=== PATIENT | male | born 1990 | race Caucasian/White ===

== ENCOUNTER 2019-01-03 11:01 | Emergency (ER) | payer OTHER ==
--- NOTE | 2019-01-03 12:22 | ED Physician Documentation ---
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 The order of pain seem to make the patient noxious and he had to leave the room. He noted that he became diaphoretic and felt a bit short of breath after that. Since that time he is felt that he has had to take a breath more frequently and that he is somewhat lightheaded. This morning when he tried to go down the stairs and felt that he was lightheaded with going down the stairs he has come to the emergency department. Review of Systems Constitutional: denies: Fever Eyes: denies: Decreased vision Ears: denies: Ear pain Nose: denies: Rhinorrhea / runny nose, Congestion Throat: denies: Sore throat Cardiac: reports: Palpitations. denies: Chest pain / pressure, Pedal edema, Calf pain Respiratory: reports: Dyspnea. denies: Cough, Wheezing GI: denies: Abdominal Pain, Nausea, Vomiting : denies: Dysuria, Frequency PD PAST MEDICAL HISTORY - Present Medications Home Medications: Ambulatory Orders Medication Instructions Recorded Confirmed No Known Home Medications 01/03/19 01/03/19 - Allergies Allergies/Adverse Reactions: Allergies Allergy/AdvReac Type Severity Reaction Status Date / Time No Known Drug Allergies Allergy Verified 01/03/19 11:08 PD ED PE NORMAL - Vitals Vital signs reviewed: Yes (hypertensive ) - General General: Alert and oriented X 3, No acute distress, Well developed/nourished - HEENT HEENT: Atraumatic, PERRL, EOMI - Neck Neck: Supple, no meningeal sign, No bony TTP - Cardiac Cardiac: RRR, No murmur - Respiratory Respiratory: No respiratory distress, Clear bilaterally - Abdomen Abdomen: Soft, Non tender - Back Back: No CVA TTP, No spinal TTP - Derm Derm: Normal color, Warm and dry, No rash - Extremities Extremities: No deformity, No edema - Neuro Neuro: Alert and oriented X 3, No motor deficit, No sensory deficit, Normal speech Eye Opening: Spontaneous Motor: Obeys Commands Verbal: Oriented GCS Score: 15 - Psych Psych: Normal mood, Normal affect Results - Vitals Vitals: Vital Signs - 24 hr 01/03/19 01/03/19 11:05 13:08 Temperature 37.3 C 36.5 C Heart Rate 75 58 L Respiratory 18 16 Rate Blood Pressure 151/77 H 123/83 H O2 Saturation 100 100 Oxygen O2 Source Room air - EKG (time done) 1114 Rate: Rate (enter#) (70) Rhythm: NSR Ischemia: ST elevation c/w repol Compare to prior EKG: Old EKG unavailable Computer interpretation: Agree with computer - Labs Labs: Laboratory Tests 01/03/19 01/03/19 01/03/19 12:42 12:42 12:42 WBC 7.0 RBC 4.91 Hgb 15.4 Hct 43.9 MCV 89.4 MCH 31.4 H MCHC 35.1 RDW 12.1 Plt Count 225 MPV 11.3 Neut # (Auto) 4.8 Lymph # (Auto) 1.5 [place] # (Auto) 0.5 Eos # (Auto) 0.1 Baso # (Auto) 0.1 Absolute Nucleated RBC 0.00 Nucleated RBC % 0.0 Sodium 139 Potassium 4.2 Chloride 100 L Carbon Dioxide 28 Anion Gap 11.0 BUN 15 Creatinine 0.9 Estimated GFR (MDRD) 100 Glucose 87 Calcium 9.3 Total Bilirubin 0.7 AST 25 ALT 15 Alkaline Phosphatase 73 Troponin I < 0.04 Total Protein 7.8 Albumin 4.5 Globulin 3.3 Albumin/Globulin Ratio 1.4 Lipase 31 Procedures - IVC sono (time) 1215 Bedside IVC sono: IVC measures (cm) (1.22), IVC collapsed c insp (cm) (complete), Dehydration (est 1 liter deficit) PD MEDICAL DECISION MAKING - ED course Complexity details: reviewed results, re-evaluated patient, considered differential, d/w patient, d/w family ED course: 28 y/o male with lightheadedness is dehydrated on interrogation of the IVC. He is able to orally hydrate and I suspect his symptoms are all related to dehydration. Blood work is obtained. All is normal. The patient experienced a chemical sensitivity event that preceded all of this and he may have some trouble with chemical sensitivity. Departure - Departure Disposition: 01 Home, Self Care Clinical Impression: Dehydration, Sensitivity to occupational chemical Condition: Stable Instructions: ED Dehydration Follow-Up: CRYSTAL Murrieta [Provider Group]
[2019-01-03 12:50] LABS: BASOPHILS # (AUTO) 0.1 10^3/uL (0.0-0.1); BASOPHILS % (AUTO) 0.9 %; EOSINOPHILS # (AUTO) 0.1 10^3/uL (0.0-0.7); EOSINOPHILS % (AUTO) 0.9 %; HGB - HEMOGLOBIN 15.4 g/dL (14.0-18.0); LYMPHOCYTES # (AUTO) 1.5 10^3/uL (1.5-3.5); MEAN CORPUSCULAR HEMOGLOBIN 31.4 pg (27.0-31.0); MEAN CORPUSCULAR HGB CONC 35.1 g/dL (32.0-36.0); MEAN CORPUSCULAR VOLUME 89.4 fL (80.0-94.0); MEAN PLATELET VOLUME 11.3 fL (7.4-11.4); MONOCYTES # (AUTO) 0.5 10^3/uL (0.0-1.0); MONOCYTES % (AUTO) 7.2 %; NEUTROPHILS # (AUTO) 4.8 10^3/uL (1.5-6.6); NEUTROPHILS % (AUTO) 68.7 %; PLT - PLATELET COUNT 225 10^3/uL (130-450); RED BLOOD COUNT 4.91 10^6/uL (4.70-6.10); RED CELL DISTRIBUTION WIDTH 12.1 % (12.0-15.0)
[2019-01-03 13:03] LABS: ALBUMIN 4.5 g/dL (3.2-5.5); ALBUMIN/GLOBULIN RATIO 1.4 (1.0-2.2); BILIRUBIN,TOTAL 0.7 mg/dL (0.2-1.0); CALCIUM 9.3 mg/dL (8.5-10.3); CREATININE 0.9 mg/dL (0.6-1.2); TOTAL PROTEIN 7.8 g/dL (6.7-8.2)
[2019-01-03 13:10] VITALS: BP 123/83
== END 2019-01-03 13:27 | disposition home or self-care (01) ==
LOC: ED 11:01
DX: E86.0 Dehydration (principal); Z57.5 Occupational exposure to toxic agents in other industries
CPT/HCPCS: 36415; 80053; 83690; 84484; 85025; 93005; 99283

== ENCOUNTER 2019-01-13 15:37 | Emergency (ER) | payer OTHER ==
--- NOTE | 2019-01-13 15:45 | ED Physician Documentation ---
History of Present Illness - Stated complaint Stated Complaint: SOA - History obtained from History obtained from: Patient - Additonal information Additional information: Patient is a 28-year-old male presenting with several weeks of worsening shortness of breath without productive cough or fever. Patient reports associated intermittent chest discomfort. He denies URI complaints, as well as other abdominal complaints including pain, nausea, vomiting, urinary changes, or stool changes from his baseline. Patient has been seen by his flight doctor, as well as in the ED for the symptoms with negative work-up including EKG, cardiac enzymes, screening lab work, chest x-ray. Patient is scheduled to see a primary care physician tomorrow and has been told he will likely be sent to a senior administrator support. Patient denies use of steroids, inhalers, or other medications at home. Patient also denies tobacco or vaping. No other improving or worsening factors noted. Review of Systems Constitutional: denies: Fever Nose: denies: Rhinorrhea / runny nose, Congestion Cardiac: reports: Chest pain / pressure Respiratory: reports: Dyspnea. denies: Cough GI: denies: Abdominal Pain, Nausea, Vomiting, Diarrhea : denies: Dysuria PD PAST MEDICAL HISTORY - Past Medical History Past Medical History: No - Past Surgical History Past Surgical History: No - Present Medications Home Medications: Ambulatory Orders Medication Instructions Recorded Confirmed Albuterol Sulf [Ventolin Hfa 1 - 2 puffs INH Q4HR PRN #1 inhaler 01/13/19 Inhaler] - Allergies Allergies/Adverse Reactions: Allergies Allergy/AdvReac Type Severity Reaction Status Date / Time No Known Drug Allergies Allergy Verified 01/13/19 15:51 PD ED PE NORMAL - Vitals Vital signs reviewed: Yes - General General: Alert and oriented X 3, No acute distress, Well developed/nourished - HEENT HEENT: Atraumatic, Moist mucous membranes, Pharynx benign, Dentition benign - Neck Neck: Supple, no meningeal sign - Cardiac Cardiac: RRR, No murmur - Respiratory Respiratory: No respiratory distress, Clear bilaterally - Abdomen Abdomen: Normal bowel sounds, Soft, Non tender, Non distended - Derm Derm: Normal color, Warm and dry, No rash - Extremities Extremities: No deformity, No tenderness to palpate - Neuro Neuro: Alert and oriented X 3, No motor deficit, No sensory deficit - Psych Psych: Normal mood, Normal affect Results - Vitals Vitals: Vital Signs - 24 hr 01/13/19 01/13/19 15:46 16:46 Temperature 36.2 C L Heart Rate 75 71 Respiratory 19 16 Rate Blood Pressure 132/93 H O2 Saturation 99 Oxygen O2 Source Room air - EKG (time done) 1615 Rate: Rate (enter#) (71) Rhythm: NSR QRS: LVH Ischemia: ST elevation c/w repol PD MEDICAL DECISION MAKING - ED course Complexity details: reviewed old records, reviewed results, re-evaluated patient, considered differential, d/w patient ED course: Patient is otherwise young and healthy and presenting with several weeks of shortness of breath with exertion. Patient has received extensive work-up by flight physician and ED recently. Have low suspicion for ACS, AR, unstable angina, dissection, aneurysm, but considered. Do not feel patient is at high risk for cardiomyopathy, CHF at this time. Do not feel he requires emergent echo, but this could be completed as an outpatient. EKG repeated today which not find evidence of ischemia or particular rhythm change. Patient has received cardiac enzymes recently which have returned negative. Patient's chest x-rays have also been performed and did not find evidence of pulmonary edema or pneumonia and do not feel this requires repeating today. Did obtain CTA chest to further rule out PE, which returned relatively unremarkable. Feel that patient may be experiencing reactive airway disease or other asthma and he received DuoNeb in the ED and plan to prescribe albuterol inhaler for home. Patient is also concerned about possible exposures in the past and this could be contributing, however, feel this is best left to a senior administrator support to investigate. Patient has primary care physician follow-up tomorrow and his flight doctor has already suggested cardiology and pulmonology referral from the PCP.Respiratory therapy worked with patient regarding use of inhaler and spacer. At this time, I feel the patient is safe to discharge home with close follow-up tomorrow and otherwise advised on strict return precautions. Patient voiced understanding and is comfortable with discharge plan. Departure - Departure Disposition: 01 Home, Self Care Clinical Impression: Reactive airway disease Qualifiers: Asthma severity: unspecified severity Asthma complication type: uncomplicated Instructions: ED Reactive Airway Disease Follow-Up: Renate Shah MD [Primary Care Provider] - Tomorrow Prescriptions: Albuterol Sulf [Ventolin Hfa Inhaler] 1 - 2 puffs INH Q4HR PRN #1 inhaler PRN Reason: Shortness Of Air/Wheezing Comments: Please use inhaler as prescribed to help with shortness of breath. Please follow-up as scheduled with primary care physician tomorrow and consider referral to cardiology and/or pulmonology. Return to ED sooner if experience worsening symptoms or have other concerns.
[2019-01-13] MEDS ORDERED: IPRATROPIUM/ALBUTEROL 3 ML NEB INH STA (16:02)
[2019-01-13] MEDS ORDERED: IOVERSOL 320 100 ML VIAL IVP ONE ×2 (16:20→17:40)
--- NOTE | 2019-01-13 17:02 | CT Report ---
Reason: weeks of SOB, concern for PE Procedure Date: 01/13/2019 Accession Number: [id number] / [id number] Procedure: CT - ANGIO CHEST W/WO CPT Code: FULL RESULT: EXAM: CT ANGIOGRAM CHEST EXAM DATE: 01/13/2019 04:35 PM. CLINICAL HISTORY: Weeks of SOB, concern for PE. COMPARISON: None. TECHNIQUE: Routine helical imaging was performed through the chest in the pulmonary arterial phase. IV Contrast: OPTI 320 80ML. Reconstructions: Coronal 3-D MIP reconstructions.Sagittal and coronal. In accordance with CT protocol optimization, one or more of the following dose reduction techniques were utilized for this exam: automated exposure control, adjustment of mA and/or KV based on patient size, or use of iterative reconstructive technique. FINDINGS: Pulmonary Arteries: Diagnostic quality: Adequate through the segmental arteries. No evidence for acute or chronic pulmonary emboli. RV/LV is within normal limits. There is no interventricular septal bowing. There is no reflux of contrast material in the IVC. Lungs/Pleura: No consolidation, nodules, or edema. No effusions or pneumothorax. Mediastinum: Normal. No cardiac enlargement or adenopathy. Thoracic Aorta: Unremarkable. Upper Abdomen: Unremarkable. Other: None. IMPRESSION: Negative pulmonary CT angiogram. No pulmonary emboli. RADIA
[2019-01-13 17:37] VITALS: BP 139/84
== END 2019-01-13 17:37 | disposition home or self-care (01) ==
LOC: ED 15:37
DX: J45.909 Unspecified asthma, uncomplicated (principal); R07.89 Other chest pain
CPT/HCPCS: 71275; 93005; 94640; 99284; Q9967

== ENCOUNTER 2019-06-16 13:44 | Emergency (ER) | payer OTHER ==
[2019-06-16 13:53] VITALS: BP 148/77
--- NOTE | 2019-06-16 14:27 | ED Physician Documentation ---
History of Present Illness - Stated complaint Stated Complaint: LT WRIST LAC - Chief complaint Chief Complaint: Laceration - Additonal information Additional information: This is a 29-year-old male who presents a laceration to his left wrist. He was opening presents for his children with a knife and it slipped and stabbed him in the left volar aspect of the forearm. he states that it oozed blood for quite a while. He put a butterfly across it and put some first-skin liquid bandage over top of it, and this seemed to control the bleeding but then later when he was playing with his kids began to bleed again so he decided to come here for repair. He is able to flex and extend his hand denies any numbness or tingling. He did not notice any arterial spurting from it Review of Systems Constitutional: denies: Fever Skin: reports: Laceration (s) PD PAST MEDICAL HISTORY - Past Surgical History Past Surgical History: No - Present Medications Home Medications: Ambulatory Orders Medication Instructions Recorded Confirmed Albuterol Sulf [Ventolin Hfa 1 - 2 puffs INH Q4HR PRN #1 inhaler 01/13/19 Inhaler] - Allergies Allergies/Adverse Reactions: Allergies Allergy/AdvReac Type Severity Reaction Status Date / Time No Known Drug Allergies Allergy Verified 06/16/19 13:53 - Living Situation Living Situation: reports: With family Living Arrangement: reports: At home - Social History Does the pt smoke?: No PD ED PE NORMAL - Vitals Vital signs reviewed: Yes - General General: Alert and oriented X 3 - HEENT HEENT: Atraumatic - Respiratory Respiratory: No respiratory distress - Abdomen Abdomen: Non distended - Extremities Extremities: Other (On the left forearm on the volar aspect of the arm there is a 1 cm linear laceration that extends through the subcutaneous tissue. There is no tendon or bone visible. There is no active bleeding. There is no foreign body.Sensation distally is intact. Patient has full strength against resistance with flexion of all digits at DIP PIP and MCP joints.) - Neuro Neuro: Alert and oriented X 3 Results - Vitals Vitals: Vital Signs - 24 hr 06/16/19 13:49 Temperature 36.4 C L Heart Rate 76 Respiratory 16 Rate Blood Pressure 148/77 H O2 Saturation 99 Oxygen O2 Source Room air Procedures - Laceration (location) L forearm Length in cm: 1 Wound type: Linear Neurovascular status: Sensory intact, Motor intact, Vascular intact Tendon involvement: Tendon intact Wound Preparation: Other (Irrigated copiously with clean water) Skin layer closure: Nylon (1 simple interrupted ethilon suture) Other: Patient tolerated well, No complications, Neurovascular intact, Tetanus UTD Complexity: Simple PD MEDICAL DECISION MAKING - ED course ED course: Patient presents with a simple laceration to his left forearm, there are no signs of damage to underlying structures, no signs of arterial or tendon injury. This was repaired with a single suture after discussing with him the options of Steri-Strips and skin glue versus suturing, I reviewed signs of infection, recommended suture removal in 7 to 10 days, and patient was discharged home Departure - Departure Disposition: 01 Home, Self Care Clinical Impression: Laceration Condition: Good Instructions: ED Laceration All Comments: Please have your stitches checked for removal in 10 days. If you develop signs of infection such as redness streaking up the arm, or pus draining from the wound, return to the emergency department. Discharge Date/Time: 06/16/19 14:43
== END 2019-06-16 14:43 | disposition home or self-care (01) ==
LOC: ED 13:44
DX: S51.812A Laceration without foreign body of left forearm, initial encounter (principal); W26.0XXA Contact with knife, initial encounter; Y93.89 Activity, other specified
CPT/HCPCS: 12001; 99281

== ENCOUNTER 2019-07-12 16:10 | Emergency (ER) | payer OTHER ==
[2019-07-12 16:29] VITALS: BP 133/78
[2019-07-12 16:39] LABS: BILIRUBIN,URINE NEGATIVE (NEGATIVE); GLUCOSE, URINE (UA) NEGATIVE (NEGATIVE); KETONES,URINE (UA) NEGATIVE (NEGATIVE); LEUKOCYTE ESTERASE, URINE NEGATIVE (NEGATIVE); NITRITE,URINE NEGATIVE (NEGATIVE); OCCULT BLOOD,URINE SMALL (NEGATIVE); PROTEIN,URINE NEGATIVE (NEGATIVE); UROBILINOGEN,URINE 0.2 (NORMAL) E.U./dL (NORMAL)
[2019-07-12 16:41] LABS: CLARITY,URINE CLEAR (CLEAR)
[2019-07-12 16:48] LABS: BACTERIA,URINE Rare /HPF (None Seen); RBC,URINE 0-5 /HPF (0-5); SQUAMOUS EPITHELIAL CELL,UR NONE SEEN (<= Few)
--- NOTE | 2019-07-12 18:37 | ED Physician Documentation ---
PD HPI MALE - Stated complaint Stated Complaint: M - Chief complaint Chief Complaint: UTI - History obtained from History obtained from: Patient - History of Present Illness Timing - onset: Today (Starting after may be rubbing his penis against his pants accidentally today he had some urinary frequency and burning and a small amount of hematuria. No flank pain. No fevers. No concern for STD per him.) Review of Systems Constitutional: reports: Reviewed and negative Cardiac: reports: Reviewed and negative Respiratory: reports: Reviewed and negative PD PAST MEDICAL HISTORY - Past Medical History Past Medical History: Yes Cardiovascular: None Respiratory: None Neuro: None Endocrine/Autoimmune: None GI: None : None HEENT: None Psych: None Musculoskeletal: None Derm: None - Past Surgical History Past Surgical History: No - Present Medications Home Medications: Ambulatory Orders Medication Instructions Recorded Confirmed No Known Home Medications 07/12/19 07/12/19 - Allergies Allergies/Adverse Reactions: Allergies Allergy/AdvReac Type Severity Reaction Status Date / Time No Known Drug Allergies Allergy Verified 07/12/19 16:29 - Social History Does the pt smoke?: No Smoking Status: Never smoker Does the pt drink ETOH?: Yes Does the pt have substance abuse?: No - Immunizations Immunizations are current?: Yes - POLST Patient has POLST: No PD ED PE NORMAL - Vitals Vital signs reviewed: Yes - General General: Alert and oriented X 3, No acute distress - Male Male : Other (Normal circumcised male genitalia, looks like there is actually a little inferior right sided urethral abrasion that is probably causing his symptoms. No inguinal adenopathy, no flank tenderness.) - Back Back: No CVA TTP, No spinal TTP - Extremities Extremities: No edema, No calf tenderness / cord - Neuro Neuro: Alert and oriented X 3, Normal speech Results - Vitals Vitals: Vital Signs - 24 hr 07/12/19 16:27 Temperature 37 C Heart Rate 60 Respiratory 18 Rate Blood Pressure 133/78 H O2 Saturation 100 Oxygen O2 Source Room air - Labs Labs: Laboratory Tests 07/12/19 16:29 Urine Color YELLOW Urine Clarity CLEAR Urine pH 7.0 Ur Specific Vass <=1.005 Urine Protein NEGATIVE Urine Glucose (UA) NEGATIVE Urine Ketones NEGATIVE Urine Occult Blood SMALL H Urine Nitrite NEGATIVE Urine Bilirubin NEGATIVE Urine Urobilinogen 0.2 (NORMAL) Ur Leukocyte Esterase NEGATIVE Urine RBC 0-5 Urine WBC 0-3 Ur Squamous Epith Cells NONE SEEN Urine Bacteria Rare Ur Microscopic Review INDICATED Urine Culture Comments NOT INDICATED PD MEDICAL DECISION MAKING - ED course ED course: Looks like he actually just kind of abraded the urethra against his pants, will add on STD testing but he has a low suspicion. Departure - Departure Disposition: 01 Home, Self Care Clinical Impression: Urethral injury, closed Qualifiers: Encounter type: initial encounter Qualified Code(s): S37.30XA - Unspecified injury of urethra, initial encounter Condition: Good Record reviewed to determine appropriate education?: Yes Comments: Ibuprofen as needed for the pain, drink plenty water, return for new or worsening symptoms, it should be gone within 24 hours or so.
[2019-07-12 21:50] LABS: TRICHOMONAS VAGINALIS DNA NEGATIVE (NEGATIVE)
== END 2019-07-12 18:54 | disposition home or self-care (01) ==
LOC: ED 16:10
DX: S37.30XA Unspecified injury of urethra, initial encounter (principal); X58.XXXA Exposure to other specified factors, initial encounter
CPT/HCPCS: 81001; 81003; 87086; 87491; 87591; 87661; 99282; 99283